=== PATIENT | female | born 2000 | race Two or more races ===

== ENCOUNTER 2019-03-24 12:48 | Emergency (ER) | payer OTHER ==
[~2019-03-24] VITALS: Ht 160 cm; Wt 79.0 kg
[2019-03-24] MEDS ORDERED: IBUPROFEN 600MG TABLET PO ONE (15:15)
[2019-03-24] MEDS ORDERED: TETANUS, DIPHTHERIA, PERTUSSIS VAC/PF 0.5ML (>7YR OLD) IM ONE (15:15)
[2019-03-24 16:23] VITALS: BP 127/87
== END 2019-03-24 16:27 | disposition home or self-care (01) ==
LOC: ER 12:48
DX: S67.21XA Crushing injury of right hand, initial encounter (principal); S61.212A Laceration without foreign body of right middle finger without damage to nail, initial encounter; W23.0XXA Caught, crushed, jammed, or pinched between moving objects, initial encounter; Y93.89 Activity, other specified; Y92.89 Other specified places as the place of occurrence of the external cause; Z23 Encounter for immunization
CPT/HCPCS: 73130; 81025; 90471; 90715; 99283